=== PATIENT | male | born 1940 | race Caucasian/White ===

== ENCOUNTER → 2018-12-19 13:14 | Outpatient (CLI) | payer MEDICARE, SELFPAY ==
[2018-12-19 13:42] LABS: Basophils # 0.1 K/mm3 (0-0.2); Basophils % 1.1 % (0.1-2.0); Eosinophils # 0.3 K/mm3 (0.0-0.4); Eosinophils % 6.6 % (0.1-12.0); Hematocrit 45.6 % (42.0-52.0); Hemoglobin 15.4 g/dL (14.1-18.0); Lymphocytes # 1.7 K/mm3 (0.7-4.5); Lymphocytes % 32.8 % (10-50); Mean Corpuscular HGB Conc 33.9 g/dL (31.8-35.4); Mean Corpuscular Hemoglobin 30.3 pg (27.0-31.2); Mean Corpuscular Volume 89.5 fl (80-94); Mean Platelet Volume 7.7 fl (7.4-10.4); Monocytes # 0.4 K/mm3 (0.1-1.0); Monocytes % 8.5 % (1.7-9.3); Neutrophils # 2.6 K/mm3 (1.8-7.8); Platelet Count 267 K/mm3 (142-424); Red Cell Distribution Width 13.4 % (11.5-17.5); White Blood Count 5.1 K/mm3 (4.8-10.8)
[2018-12-19 14:42] LABS: Alanine Aminotransferase 26 U/L (12-78); Albumin Level 3.8 gm/dL (3.4-5.0); Albumin/Globulin Ratio 1.3 (1.1-1.8); Alkaline Phosphatase 72 U/L (46-116); Anion Gap 12.3 mEq/L (5-15); Aspartate Amino Transferase 15 U/L (15-37); Bilirubin,Total 1.1 mg/dL (0.2-1.0); Blood Urea Nitrogen 24 mg/dL (7-18); Calcium 8.9 mg/dL (8.5-10.1); Carbon Dioxide 28 mmol/L (21.0-32.0); Chloride 108 mmol/L (98-107); Cholesterol 209 mg/dL (140-200); Creatinine,Serum 1.41 mg/dL (0.70-1.30); Estimated Glomerular Filt Rate 49 ml/min (>60); GFR (African American) 59 ML/MIN (>60); Globulin 2.9 gm/dl (1.3-3.2); Glucose 93 mg/dL (74-106); HDL Cholesterol 42 mg/dL (27-67); LDL Cholesterol 145 mg/dL (0-130); Potassium 4.3 mmoL/L (3.5-5.1); Sodium 144 mmol/L (136-145); T4 (Thyroxine) 8.8 ug/dl (4.7-13.3); Thyroid Stimulating Hormone 2.47 uIU/ml (0.358-3.740); Total Protein,Serum 6.7 gm/dL (6.4-8.2); Triglycerides 110 mg/dL (30-200); VLDL Cholesterol 22 mg/dL (0-40)
[2018-12-20 19:09] LABS: PSA, Free 0.41 ng/mL; Prostate Specific Ag 1.6 ng/mL (0.0-4.0); Vitamin D 25 Hydroxy 50.8 ng/mL (30.0-100.0)
== END ==
PROVIDERS: Visit Provider Emergency Medicine
DX: Z00.00 Encounter for general adult medical examination without abnormal findings (principal); Z12.5 Encounter for screening for malignant neoplasm of prostate; R53.83 Other fatigue; E78.5 Hyperlipidemia, unspecified
CPT/HCPCS: 80053; 80061; 82652; 84153; 84154; 84436; 84443; 85025

== ENCOUNTER → 2018-12-22 13:23 | Outpatient (CLI) | payer MEDICARE, SELFPAY ==
[2018-12-22 14:45] LABS: Erythrocyte Sedimentation Rate 1 mm/hr (0-20)
== END ==
PROVIDERS: PCP Emergency Medicine; Visit Provider Emergency Medicine
DX: R53.83 Other fatigue (principal)
CPT/HCPCS: 85651

== ENCOUNTER → 2019-02-05 08:15 | Outpatient (CLI) | payer MEDICARE, SELFPAY ==
--- NOTE | 2019-02-05 08:28 | MR_ITS ---
MR head/brain wo/w con HISTORY: Bilateral hearing loss ITS.REASON: for temporal bones please ORDERING PHYSICIAN: Pierce Lerner MD PATIENT AGE: 78 years Comparison: None TECHNIQUE: Standard multiplanar multiecho sequences are performed without and with gadolinium enhancement. Thin section pre- and post enhanced coronal and axial images are obtained of the cerebellopontine angle/temporal bones as well. FINDINGS: No midline shift, mass effect, intracranial hemorrhage, or hydrocephalus is evident. No evidence of acute infarction. There are scattered periventricular and subcortical T2 white matter hyperintensities consistent with ischemic gliotic change from microvascular disease. The pituitary, corpus callosum, optic chiasm, and craniocervical junction have an unremarkable appearance. Thin section pre and post enhanced T1 weighted images through the CP angles were obtained. There is some mild enhancement involving mainly the extracanalicular portion of the left nerve VII and VIII complex with some minimal intracanalicular enhancement as well. The right CP angle has an unremarkable appearance. No other significant anomalies are evident. No other abnormal areas of enhancement are apparent. No sinus air-fluid level or mastoid effusion. IMPRESSION: There is mild enhancement of the LEFT nerve VII and VIII complex mostly extracanalicular but also with some minimal intracanalicular enhancement. The VII and VIII nerve complex is not significantly enlarged. 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
[2019-02-05 08:32] LABS: Blood Urea Nitrogen 19 mg/dL (7-18); Creatinine,Serum 1.47 mg/dL (0.70-1.30); Estimated Glomerular Filt Rate 46 ml/min (>60); GFR (African American) 56 ML/MIN (>60)
== END ==
PROVIDERS: Visit Provider Otolaryngology
DX: D33.3 Benign neoplasm of cranial nerves (principal); H90.5 Unspecified sensorineural hearing loss
CPT/HCPCS: 36415; 70553; 82565; 84520; A9576

== ENCOUNTER 2020-03-14 00:28 | Emergency (ER) | payer MEDICARE, SELFPAY ==
[2020-03-14 00:30] VITALS: BP 196/88; PULSE 64; RESP 16; O2SAT 95
[2020-03-14 00:38] VITALS: BP 207/84; PULSE 58; RESP 16; TEMP 36.8; O2SAT 95; BMI 23.8
[2020-03-14 01:00] VITALS: BP 201/81; PULSE 60; RESP 17; O2SAT 95
[2020-03-14 01:03] LABS: Basophils # 0.1 K/mm3 (0-0.2); Basophils % 0.8 % (0.1-2.0); Eosinophils # 0.4 K/mm3 (0.0-0.4); Eosinophils % 4.9 % (0.1-12.0); Hematocrit 47.5 % (42.0-52.0); Hemoglobin 16.9 g/dL (14.1-18.0); Lymphocytes % 41.1 % (10-50); Mean Corpuscular HGB Conc 35.5 g/dL (31.8-35.4); Mean Corpuscular Hemoglobin 31.3 pg (27.0-31.2); Mean Corpuscular Volume 88.2 fl (80-94); Mean Platelet Volume 7.6 fl (7.4-10.4); Monocytes # 0.5 K/mm3 (0.1-1.0); Monocytes % 6.3 % (1.7-9.3); Neutrophils # 3.5 K/mm3 (1.8-7.8); Neutrophils % 46.9 % (37.0-80.0); Platelet Count 228 K/mm3 (142-424); Red Blood Count 5.38 M/mm3 (4.60-6.20); Red Cell Distribution Width 13.2 % (11.5-17.5); White Blood Count 7.4 K/mm3 (4.8-10.8)
[2020-03-14 01:08] LABS: Chloride 109 mmol/L (98-107)
[2020-03-14 01:09] LABS: Sodium 142 mmol/L (136-145)
[2020-03-14 01:11] LABS: Alanine Aminotransferase 17 U/L (12-78); Alkaline Phosphatase 73 U/L (38-126); Aspartate Amino Transferase 27 U/L (17-59); Bilirubin,Total 0.9 mg/dl (0.2-1.3); Blood Urea Nitrogen 22 mg/dl (9-20); Creatinine Clearance Estimated 39 mL/min (50-200); Estimated Glomerular Filt Rate 45 ml/min (>60); GFR (African American) 55 ML/MIN (>60)
[2020-03-14 01:12] LABS: Albumin Level 4.1 g/dl (3.5-5.0); Albumin/Globulin Ratio 1.4 (1.1-1.8); Calcium 9.2 mg/dl (8.4-10.2); Carbon Dioxide 28 mmol/L (22.0-30.0); Globulin 2.9 g/dL (1.3-3.2); Glucose 104 mg/dl (74-100)
--- NOTE | 2020-03-14 01:13 | HMH.EDALLER ---
ED Disposition Clinical Impression: Renal impairment Angioedema Qualifiers: Encounter type: initial encounter Qualified Code(s): T78.3XXA - Angioneurotic edema, initial encounter Disposition: Home, Self-Care Condition on Discharge: Good Instructions: DI for Angioedema Additional Instructions: see pcp today for follow up Prescriptions: predniSONE [Prednisone 20mg Tab] 20 mg PO BID #10 tab Transmission Status: Pending to [facility] #[id number] Referrals: PCP,No [Primary Care Provider] - - Critical Care Critical Care Time: No Attestation: On 03/14/20, the high probability of a clinically significant, sudden or life threatening deterioration of the following system(s) required my full and direct attention, intervention and personal management. The time I documented below is in addition to time spent performing reported procedures but includes the following listed in this critical care notation. Medical Decision Making - Medical Records Medical records reviewed: Yes: I reviewed the patient's medical records. - Oliver Inquiry Pt receiving controlled substance: No Vital Signs: 03/14/20 00:30 03/14/20 00:38 03/14/20 01:00 Temperature 98.3 F Temperature Source Oral Pulse Rate [Right] 64 58 L 60 Respiratory Rate 16 16 17 Blood Pressure [Right Arm] 196/88 H 207/84 H 201/81 H Blood Pressure Mean [Right Arm] 124 125 121 Blood Pressure Source [Right Arm] Automatic Cuff Automatic Cuff Automatic Cuff Blood Pressure Position [Right Arm] Supine Sitting Supine 02 Sat by Pulse Oximetry 95 95 95 Oxygen Delivery Method Room Air Room Air Room Air 03/14/20 02:00 Temperature Temperature Source Pulse Rate [Right] 51 L Respiratory Rate 15 Blood Pressure [Right Arm] 181/86 H Blood Pressure Mean [Right Arm] 117 Blood Pressure Source [Right Arm] Automatic Cuff Blood Pressure Position [Right Arm] Sitting 02 Sat by Pulse Oximetry 94 L Oxygen Delivery Method Room Air - Lab Data Lab results reviewed: Yes: I reviewed the patient's lab results. Lab Results 03/14/20 00:45: WBC 7.4, RBC 5.38, Hgb 16.9, Hct 47.5, MCV 88.2, MCH 31.3 H, MCHC 35.5 H, RDW 13.2, Plt Count 228, MPV 7.6, Neut % (Auto) 46.9, Lymph % (Auto) 41.1, [place] % (Auto) 6.3, Eos % (Auto) 4.9, Baso % (Auto) 0.8, Neut # (Auto) 3.5, Lymph # (Auto) 3.0, [place] # (Auto) 0.5, Eos # (Auto) 0.4, Baso # (Auto) 0.1, ESR 2 03/14/20 00:45: Sodium 142, Potassium 4.0, Chloride 109 H, Carbon Dioxide 28, Anion Gap 9.0, BUN 22 H, Creatinine 1.50 H, Estimated Creat Clear 39, Estimated GFR 45 L, Est GFR ( Amer) 55 L, Glucose 104 H, Calcium 9.2, Total Bilirubin 0.9, AST 27, ALT 17, Alkaline Phosphatase 73, C-Reactive Protein 3.1, Total Protein 7.0, Albumin 4.1, Globulin 2.9, Albumin/Globulin Ratio 1.4 Result diagrams: 03/14/20 00:45 03/14/20 00:45 Orders (Tests/Meds): ED MEDICATIONS Generic Name Dose Route Start Last Admin Trade Name Freq PRN Reason Stop Dose Admin Sodium Chloride 1,000 mls @ 999 mls/hr 03/14/20 01:00 03/14/20 01:06 Sod Chlor 0.9% 1000ml Bag IV 03/14/20 02:00 999 mls/hr .Q1H1M JOSE ALFREDO Administration Sodium Chloride 8 ml 03/14/20 00:47 03/14/20 01:06 Sodium Chloride 0.9% 10ml Vial IV 04/13/20 00:46 8 ml NEEDED PRN Administration dilute pepcid Discontinued Medications Generic Name Dose Route Start Last Admin Trade Name Freq PRN Reason Stop Dose Admin Diphenhydramine HCl 50 mg 03/14/20 00:47 03/14/20 01:05 Benadryl 50mg/1ml Vial IV 03/14/20 00:48 50 mg ONCE ONE Administration Famotidine 20 mg 03/14/20 00:47 03/14/20 01:05 Pepcid 20mg/2ml Vial IV 03/14/20 00:48 20 mg ONCE ONE Administration Methylprednisolone Sodium Succinate 125 mg 03/14/20 00:47 03/14/20 01:05 Solu-Medrol 125mg/2ml Vial IV 03/14/20 00:48 125 mg ONCE ONE Administration - Reevaluation(s) Time: 02:41 Reevaluation #1: much improved Allergic React/Insect Bite HPI - General Chief comp
[2020-03-14 01:17] LABS: C-Reactive Protein 3.1 mg/L (0-4)
[2020-03-14 01:27] LABS: Erythrocyte Sedimentation Rate 2 mm/hr (0-20)
[2020-03-14 02:00] VITALS: BP 181/86; PULSE 51; RESP 15; O2SAT 94
--- NOTE | 2020-03-14 02:43 | PC.NURSE ---
Pt feels better, tongue swelling improved
[2020-03-14 02:44] VITALS: BP 180/82; PULSE 60; RESP 14; TEMP 36.8; O2SAT 96
== END 2020-03-14 02:48 | disposition home or self-care (01) ==
PROVIDERS: Emergency Provider Emergency Medicine
DX: T78.3XXA Angioneurotic edema, initial encounter (principal); N28.9 Disorder of kidney and ureter, unspecified; Z88.8 Allergy status to other drugs, medicaments and biological substances; Z90.49 Acquired absence of other specified parts of digestive tract
CPT/HCPCS: 80053; 85025; 85651; 86140; 96365; 96375; 99283

== ENCOUNTER → 2020-11-18 14:18 | Outpatient (CLI) | payer MEDICARE, SELFPAY ==
[2020-11-18 16:05] LABS: Basophils # 0.1 K/mm3 (0-0.2); Basophils % 0.9 % (0.1-2.0); Chloride 109 mmol/L (98-107); Eosinophils # 0.3 K/mm3 (0.0-0.4); Eosinophils % 3.9 % (0.1-12.0); Hematocrit 49.8 % (42.0-52.0); Hemoglobin 16.6 g/dL (14.1-18.0); Lymphocytes % 28.8 % (10-50); Mean Corpuscular HGB Conc 33.3 g/dL (31.8-35.4); Mean Corpuscular Hemoglobin 30.1 pg (27.0-31.2); Mean Corpuscular Volume 90.5 fl (80-94); Mean Platelet Volume 8.5 fl (7.4-10.4); Monocytes # 0.6 K/mm3 (0.1-1.0); Monocytes % 7.9 % (1.7-9.3); Neutrophils # 4.2 K/mm3 (1.8-7.8); Neutrophils % 58.6 % (37.0-80.0); Platelet Count 256 K/mm3 (142-424); Potassium 4.8 mmoL/L (3.5-5.1); Red Blood Count 5.51 M/mm3 (4.60-6.20); Red Cell Distribution Width 13.4 % (11.5-17.5); Sodium 143 mmol/L (136-145); White Blood Count 7.1 K/mm3 (4.8-10.8)
[2020-11-18 16:07] LABS: Alanine Aminotransferase 19 U/L (12-78); Alkaline Phosphatase 87 U/L (38-126); Aspartate Amino Transferase 28 U/L (17-59); Bilirubin,Total 1.1 mg/dl (0.2-1.3); Blood Urea Nitrogen 23 mg/dl (9-20); Estimated Glomerular Filt Rate 42 ml/min (>60); GFR (African American) 51 ML/MIN (>60)
[2020-11-18 16:08] LABS: Albumin Level 4.4 g/dl (3.5-5.0); Albumin/Globulin Ratio 1.7 (1.1-1.8); Anion Gap 8.8 mEq/L (5-15); Calcium 9.4 mg/dl (8.4-10.2); Carbon Dioxide 30 mmol/L (22.0-30.0); Chol/HDL Ratio 5.2 (1-3.5); Cholesterol 214 mg/dl (140-200); Globulin 2.6 g/dL (1.3-3.2); Glucose 105 mg/dl (74-100); HDL Cholesterol 41 mg/dl (40-60); Triglycerides 175 mg/dl (30-150); VLDL Cholesterol 35 mg/dL (0-40)
[2020-11-18 16:19] LABS: Direct LDL Cholesterol 144.04 mg/dL (100-129)
[2020-11-18 16:24] LABS: Free T4 (Free Thyroxine) 1.32 ng/dl (0.78-2.19)
[2020-11-18 16:25] LABS: 25-OH Vitamin D, Total 54.2 ng/mL (30-100)
== END ==
PROVIDERS: Visit Provider Emergency Medicine
DX: R32 Unspecified urinary incontinence (principal); R53.83 Other fatigue; E78.5 Hyperlipidemia, unspecified; E55.9 Vitamin D deficiency, unspecified
CPT/HCPCS: 80053; 80061; 82306; 84439; 84443; 85025

== ENCOUNTER → 2021-01-04 09:27 | Outpatient (CLI) | payer MEDICARE, SELFPAY ==
[2021-01-04 10:53] LABS: Coronavirus 19 IgG Antibody Positive (Negative); Coronavirus 19 IgM Antibody Negative (Negative)
== END ==
PROVIDERS: Visit Provider Internal Medicine Gastroenterology
DX: Z01.812 Encounter for preprocedural laboratory examination (principal); Z20.822 Contact with and (suspected) exposure to COVID-19; Z12.11 Encounter for screening for malignant neoplasm of colon; Z86.010 Personal history of colon polyps
CPT/HCPCS: 36415; 86328

== ENCOUNTER 2021-01-06 09:53 | Day surgery (SDC) | payer MEDICARE, SELFPAY ==
[2021-01-03 12:48] VITALS: BMI 23.6
[2021-01-06] VITALS (8 sets, daily range): BP systolic 110–156; BP diastolic 57–76; PULSE 51–74; RESP 18; TEMP 36.4–36.6; O2SAT 97–100
--- NOTE | 2021-01-06 10:58 | HMH.ANESCL ---
[facility] Anesthesia Checklist - Structural Data Admitted From: Home Planned Operative Procedure/s: colonoscopy Consent for Planned Operative Procedure(s) Verified: Yes - Airway Assessment C-Spine Mobility Assessed: Yes TMJ Mobility Assessed: Yes Dentition: Poor Dentition - Neurological Assessment Level of Consciousness: Awake, Alert, Appropriate - Anesthesia Plan Anesthesia Risk discussed: Yes Anesthesia Plan: Verified ASA Class: II Anesthesia Type: MAC [facility] History I have reviewed the patient's past medical history: Yes Medical History: Reports:: Carotid Stenosis, Gastroesophageal Reflux Disease(GERD) Denies:: Cancer, Diabetes Mellitus Type 1, Diabetes Mellitus Type 2, Internal Pacemaker, MRSA, Seizures *Have you ever received a pneumonia vaccine?: Yes *Have you received a flu vaccine this season?: Yes Other Medical History: Reports: Sinus Problems, Other Anesthesia experience/problems:: none Other Surgeries: Yes: No Previous Surgery, Cholecystectomy, Colonoscopy. No: Pacemaker Amputation: No Fractures: No - *Social History Last grade of school completed: 11th or 12th Smoking Status: Never smoker Alcohol Intake: never Substance Use Type: denies use *Occupational Status:: retired Housing: house Household Members: spouse *Travel in the last 8 weeks: None Family Hx:: Hypertension
--- NOTE | 2021-01-06 11:23 | P.PCN_ITS ---
[facility] Procedure Note Procedure Note:: Colonoscopy Procedure Report: Colonoscopy with cold snare polypectomy Endoscopist: Marquez Stacy II, MD Referring physician: Mateus Multani MD Date of Procedure: January 06, 2021 Equipment: Olympus 190 variable stiffness pediatric colonoscope Sedation: MAC sedation Indication: Mr. Lerner is an 80-year-old gentleman who is here for follow-up surveillance colonoscopy secondary to a personal history of colon polyps. He does report that he had a colonoscopy 4 years ago in [place] ([facility]?Paramjit Beckham MD) and had colon polyps removed. He reports no abdominal pain, weight loss, change in his bowel habits or rectal bleeding. He reports no family history of colon cancer. Procedure: Prior to the procedure, a history and physical exam was performed, and patient's medications and allergies were reviewed. The risks, benefits and alternatives of the sedation and procedure were discussed with the patient. All questions were answered and informed consent was obtained. The patient was brought to the procedure room. Patient identification and proposed procedure were verified by the physician and the nurse. The patient was placed in a left lateral decubitus position and the scope was passed under direct vision. Throughout the procedure, the patient's blood pressure, pulse, and oxygen saturations were monitored continuously. The colonoscopy was accomplished without difficulty. The patient tolerated the procedure well. Findings: On digital rectal examination there was normal rectal tone. There were no external hemorrhoids. The prostate had a small right margin nodule. The colonoscope was introduced through the anal canal to the rectum and advanced to the cecum. The ileocecal valve and appendiceal orifice were identified. The scope was advanced a short distance into the ileum which appeared grossly normal. The scope was then withdrawn into the colon. There were a total of 3 polyps (transverse x1 (4 mm) and descending x2 (4 and 5 mm)) which were all removed via cold snare polypectomy. The remaining cecum, ascending, transverse, descending, sigmoid and rectum were grossly normal. There were no mucosal abnormalities identified. Upon retroflexion within the rectum there were grade 1-2 internal hemorrhoids.The preparation was excellent throughout with [place] Preparation Score of 9. The cecal time was 12 minutes. Impression: 1. Diminutive colonic polyps x3 2. Grade 1-2 internal hemorrhoids 3. Prostate nodule (right lobe margin) Plan: I will follow up the polyp histology and I do not feel that he will require further preventive colonoscopy based upon his age. I will check PSA and inquire about whether he has had prior prostate evaluation.
--- NOTE | 2021-01-06 11:46 | XR_ITS ---
PROCEDURE: XR CHEST PORTABLE CLINICAL HISTORY: VOMITTING AFTER SCOPE PROCEDURE COMPARISON: No exams were available for comparison FINDINGS: The cardiomediastinal silhouette and pulmonary vascularity are within normal limits. There is patchy density present in the left lower lobe. The remaining lungs are clear. No acute bony abnormalities. IMPRESSION: Patchy density in the left lower lobe suspicious for pneumonia and could be due to aspiration pneumonitis with the above given history Dictated by: Ayden Deras MD 01/06/2021 12:08 Ayden Deras MD in [place] 01/06/2021 12:08
== END 2021-01-06 12:30 | disposition home or self-care (01) ==
LOC: OUTP 09:55
PROVIDERS: PCP Emergency Medicine; Visit Provider Internal Medicine Gastroenterology
PROC: 0DJD8ZZ Inspection of Lower Intestinal Tract, Via Natural or Artificial Opening Endoscopic (ICD-10-PCS; CPT 45378; principal; 2021-01-06 11:00)
DX: Z12.11 Encounter for screening for malignant neoplasm of colon (principal); Z86.010 Personal history of colon polyps; K63.5 Polyp of colon; K64.0 First degree hemorrhoids; N40.0 Benign prostatic hyperplasia without lower urinary tract symptoms; I65.29 Occlusion and stenosis of unspecified carotid artery; K21.9 Gastro-esophageal reflux disease without esophagitis; Z82.49 Family history of ischemic heart disease and other diseases of the circulatory system; Z88.8 Allergy status to other drugs, medicaments and biological substances; Z79.82 Long term (current) use of aspirin; Z79.899 Other long term (current) drug therapy
CPT/HCPCS: 45385; 71045; 84153; 88305

== ENCOUNTER → 2021-09-21 13:50 | Outpatient (CLI) | payer MEDICARE, SELFPAY ==
[2021-09-21 14:14] LABS: Basophils # 0.1 K/mm3 (0-0.2); Eosinophils # 0.3 K/mm3 (0.0-0.4); Eosinophils % 4.4 % (0.1-12.0); Hematocrit 50.5 % (42.0-52.0); Hemoglobin 16.7 g/dL (14.1-18.0); Lymphocytes # 1.7 K/mm3 (0.7-4.5); Mean Corpuscular Hemoglobin 31.2 pg (27.0-31.2); Mean Corpuscular Volume 94.4 fl (80-94); Mean Platelet Volume 8.3 fl (7.4-10.4); Monocytes # 0.4 K/mm3 (0.1-1.0); Monocytes % 7.7 % (1.7-9.3); Neutrophils # 3.3 K/mm3 (1.8-7.8); Neutrophils % 57.9 % (37.0-80.0); Platelet Count 267 K/mm3 (142-424); Red Blood Count 5.35 M/mm3 (4.60-6.20); Red Cell Distribution Width 13.3 % (11.5-17.5); White Blood Count 5.7 K/mm3 (4.8-10.8)
[2021-09-21 15:04] LABS: Alanine Aminotransferase 15 U/L (12-78); Albumin Level 4.2 g/dl (3.5-5.0); Albumin/Globulin Ratio 1.8 (1.1-1.8); Alkaline Phosphatase 77 U/L (38-126); Anion Gap 9.6 mEq/L (5-15); Aspartate Amino Transferase 30 U/L (17-59); Blood Urea Nitrogen 23 mg/dl (9-20); Calcium 9.2 mg/dl (8.4-10.2); Carbon Dioxide 30 mmol/L (22.0-30.0); Chloride 105 mmol/L (98-107); Chol/HDL Ratio 5.5 (1-3.5); Cholesterol 204 mg/dl (140-200); Estimated Glomerular Filt Rate 45 ml/min (>60); GFR (African American) 54 ML/MIN (>60); Globulin 2.4 g/dL (1.3-3.2); Glucose 80 mg/dl (74-100); HDL Cholesterol 37 mg/dl (40-60); Potassium 4.6 mmoL/L (3.5-5.1); Sodium 140 mmol/L (136-145); Total Protein,Serum 6.6 g/dl (6.3-8.2); Triglycerides 135 mg/dl (30-150); VLDL Cholesterol 27 mg/dL (0-40)
[2021-09-21 15:15] LABS: Direct LDL Cholesterol 149.82 mg/dL (100-129)
== END ==
PROVIDERS: Visit Provider Family Medicine
DX: Z00.00 Encounter for general adult medical examination without abnormal findings (principal); T78.3XXA Angioneurotic edema, initial encounter; Z79.899 Other long term (current) drug therapy
CPT/HCPCS: 80053; 80061; 85025

== ENCOUNTER → 2022-03-24 09:18 | Outpatient (CLI) | payer MEDICARE, SELFPAY | PROVIDERS: PCP Family Medicine; Visit Provider Ophthalmology | DX: Z01.812 Encounter for preprocedural laboratory examination (principal); Z20.822 Contact with and (suspected) exposure to COVID-19 | CPT/HCPCS: C9803; U0003; U0005 ==

== ENCOUNTER 2022-03-27 06:39 | Day surgery (SDC) | payer MEDICARE, SELFPAY ==
[2022-03-22 14:26] VITALS: BMI 23.5
[2022-03-27] VITALS (7 sets, daily range): BP systolic 141–179; BP diastolic 64–81; PULSE 45–55; RESP 16–18; TEMP 36.5; O2SAT 97–100
== END 2022-03-27 08:45 | disposition home or self-care (01) ==
LOC: OR 06:40
PROVIDERS: PCP Family Medicine; Visit Provider Ophthalmology
DX: H25.812 Combined forms of age-related cataract, left eye (principal)
CPT/HCPCS: 66984; V2632

== ENCOUNTER → 2022-04-11 06:26 | Outpatient (CLI) | payer MEDICARE, SELFPAY ==
[2022-04-11 18:18] LABS: Adenovirus,PCR Not Detected (NotDetected); Bordetella Pertussis Not Detected (NotDetected); Chlamydophila Pneumoniae, PCR Not Detected (NotDetected); Coronavirus 19, PCR Not Detected (NotDetected); Coronavirus 229E Not Detected (NotDetected); Coronavirus NL63 Not Detected (NotDetected); Coronavirus OC43 Not Detected (NotDetected); Coronovirus HKU1,PCR Not Detected (NotDetected); Influenza A, PCR Not Detected (NotDetected); Influenza AH1, 2009 Not Detected (NotDetected); Influenza AH1, PCR Not Detected (NotDetected); Influenza AH3,PCR Not Detected (NotDetected); Influenza B, PCR Not Detected (NotDetected); Mycoplasma Pneumoniae, PCR Not Detected (NotDetected); Parainfluenza 1, PCR Not Detected (NotDetected); Parainfluenza 2, PCR Not Detected (NotDetected); Parainfluenza 3, PCR Not Detected (NotDetected); Parainfluenza 4, PCR Not Detected (NotDetected); Respiratory Syncytial Virus Not Detected (NotDetected); Rhinovirus/Enterovirus Not Detected (NotDetected)
[2022-04-11 23:30] LABS: Human Metapneumovirus Detected (NotDetected)
== END ==
PROVIDERS: PCP Nurse Practitioner Family; Visit Provider Nurse Practitioner Family
DX: Z20.822 Contact with and (suspected) exposure to COVID-19 (principal); R05.9 Cough, unspecified; R09.89 Other specified symptoms and signs involving the circulatory and respiratory systems; R06.02 Shortness of breath; R50.9 Fever, unspecified; B97.81 Human metapneumovirus as the cause of diseases classified elsewhere
CPT/HCPCS: 87581; 87632; 87798; C9803; U0003; U0005

== ENCOUNTER → 2022-09-25 11:45 | Outpatient (CLI) | payer MEDICARE, SELFPAY ==
[2022-09-25 15:27] LABS: Alanine Aminotransferase 18 U/L (12-78); Albumin Level 4.2 g/dl (3.5-5.0); Albumin/Globulin Ratio 1.5 (1.1-1.8); Alkaline Phosphatase 85 U/L (38-126); Anion Gap 10.8 mEq/L (5-15); Aspartate Amino Transferase 29 U/L (17-59); Basophils # 0.1 K/mm3 (0-0.2); Basophils % 1.4 % (0.1-2.0); Bilirubin,Total 1.3 mg/dl (0.2-1.3); Blood Urea Nitrogen 21 mg/dl (9-20); Calcium 8.8 mg/dl (8.4-10.2); Carbon Dioxide 28 mmol/L (22.0-30.0); Chloride 108 mmol/L (98-107); Chol/HDL Ratio 5.5 (1-3.5); Cholesterol 213 mg/dl (140-200); Eosinophils # 0.2 K/mm3 (0.0-0.4); Eosinophils % 4.9 % (0.1-12.0); Estimated Glomerular Filt Rate 45 ml/min (>60); GFR (African American) 54 ML/MIN (>60); Globulin 2.8 g/dL (1.3-3.2); Glucose 93 mg/dl (74-100); HDL Cholesterol 39 mg/dl (40-60); Hematocrit 49.8 % (42.0-52.0); Hemoglobin 16.9 g/dL (14.1-18.0); Lymphocytes # 1.7 K/mm3 (0.7-4.5); Lymphocytes % 37.9 % (10-50); Mean Corpuscular HGB Conc 33.9 g/dL (31.8-35.4); Mean Corpuscular Hemoglobin 30.9 pg (27.0-31.2); Mean Corpuscular Volume 91.2 fl (80-94); Mean Platelet Volume 8.9 fl (7.4-10.4); Monocytes # 0.4 K/mm3 (0.1-1.0); Monocytes % 8.5 % (1.7-9.3); Neutrophils # 2.1 K/mm3 (1.8-7.8); Neutrophils % 47.2 % (37.0-80.0); Platelet Count 261 K/mm3 (142-424); Potassium 4.8 mmoL/L (3.5-5.1); Red Blood Count 5.46 M/mm3 (4.60-6.20); Red Cell Distribution Width 13.3 % (11.5-17.5); Sodium 142 mmol/L (136-145); Triglycerides 153 mg/dl (30-150); VLDL Cholesterol 31 mg/dL (0-40); White Blood Count 4.5 K/mm3 (4.8-10.8)
[2022-09-25 15:38] LABS: Direct LDL Cholesterol 135.29 mg/dL (100-129)
[2022-09-25 16:00] LABS: Prostate Specific Ag Screen 2.2 ng/ml (0.0-4.0)
== END ==
PROVIDERS: PCP Family Medicine; Visit Provider Family Medicine
DX: T78.3XXA Angioneurotic edema, initial encounter (principal); Z12.5 Encounter for screening for malignant neoplasm of prostate; E78.5 Hyperlipidemia, unspecified
CPT/HCPCS: 80053; 80061; 85025; G0103

== ENCOUNTER → 2022-10-03 11:01 | Outpatient (CLI) | payer MEDICARE, SELFPAY ==
--- NOTE | 2022-10-03 11:01 | MR_ITS ---
FINAL REPORT CLINICAL HISTORY: acoustic neuroma prior mri 02/05/19 COMPARISON: 02/05/2019 FINDINGS: Multiplanar MR imaging of the brain was performed without contrast. There is mild age-appropriate atrophy. There are scattered foci of increased T2 signal in the cerebral white matter that have a nonspecific appearance but likely represent mild chronic ischemic/gliotic changes. There is no evidence of intracranial hemorrhage. There is a small focus of soft tissue in the left cerebellopontine angle measuring 5 mm in the region of the focus of contrast enhancement seen on the prior exam. This is visually stable but of uncertain etiology. This does not have the classic appearance of a vestibular schwannoma, could represent small meningioma or atypical schwannoma. No new mass is identified. No abnormal ventricular dilatation is identified. No abnormal extra-axial fluid collection is seen. No abnormality is seen on the diffusion weighted images. Normal major vessel vascular flow voids are seen. IMPRESSION: Stable, small focus of soft tissue in the left cerebellar pontine angle as detailed above. Age-appropriate atrophy and mild chronic ischemic/gliotic changes. Reviewed, Interpreted and Dictated by Warren Yañez III, MD Transcribed by Hannah Lu Authenticated and [facility]
== END ==
PROVIDERS: PCP Family Medicine; Visit Provider Family Medicine
DX: D33.3 Benign neoplasm of cranial nerves (principal)
CPT/HCPCS: 70551

== ENCOUNTER 2023-10-23 22:21 | Outpatient (CLI) | payer MEDICARE, SELFPAY ==
[2023-10-23 19:29] LABS: 25-OH Vitamin D, Total 75.2 ng/mL (30-100)
== END 2023-10-23 23:59 ==
LOC: LAB.DROPOF 22:21
PROVIDERS: PCP Internal Medicine; Visit Provider Internal Medicine
DX: E55.9 Vitamin D deficiency, unspecified (principal)
CPT/HCPCS: 82306

== ENCOUNTER 2024-02-07 10:24 | Outpatient (CLI) | payer MEDICARE, SELFPAY ==
[2024-02-07 18:14] LABS: Basophils # 0.1 K/mm3 (0-0.2); Basophils % 1.5 % (0.1-2.0); Eosinophils # 0.5 K/mm3 (0.0-0.4); Eosinophils % 7.2 % (0.1-12.0); Hematocrit 49.4 % (42.0-52.0); Hemoglobin 16.3 g/dL (14.1-18.0); Lymphocytes # 2.1 K/mm3 (0.7-4.5); Lymphocytes % 32.5 % (10-50); Mean Corpuscular Hemoglobin 30.7 pg (27.0-31.2); Mean Corpuscular Volume 93.2 fl (80-94); Mean Platelet Volume 9.8 fl (7.4-10.4); Monocytes # 0.5 K/mm3 (0.1-1.0); Monocytes % 8.6 % (1.7-9.3); Neutrophils # 3.2 K/mm3 (1.8-7.8); Neutrophils % 50.4 % (37.0-80.0); Platelet Count 245 K/mm3 (142-424); White Blood Count 6.3 K/mm3 (4.8-10.8)
[2024-02-07 19:13] LABS: Alanine Aminotransferase 19 U/L (12-78); Albumin Level 4.1 g/dl (3.5-5.0); Albumin/Globulin Ratio 1.5 (1.1-1.8); Alkaline Phosphatase 83 U/L (38-126); Anion Gap 14.1 mEq/L (5-15); Aspartate Amino Transferase 29 U/L (17-59); Bilirubin,Total 1.1 mg/dl (0.2-1.3); Blood Urea Nitrogen 27 mg/dl (9-20); Calcium 9.4 mg/dl (8.4-10.2); Carbon Dioxide 26 mmol/L (22.0-30.0); Chloride 105 mmol/L (98-107); Chol/HDL Ratio 5.7 (1-3.5); Cholesterol 223 mg/dl (140-200); Estimated Glomerular Filt Rate 41 ml/min (>60); GFR (African American) 50 ML/MIN (>60); Globulin 2.7 g/dL (1.3-3.2); Glucose 94 mg/dl (74-100); HDL Cholesterol 39 mg/dl (40-60); Potassium 4.1 mmoL/L (3.5-5.1); Sodium 141 mmol/L (136-145); Total Protein,Serum 6.8 g/dl (6.3-8.2); Triglycerides 218 mg/dl (30-150); VLDL Cholesterol 44 mg/dL (0-40)
[2024-02-07 19:31] LABS: 25-OH Vitamin D, Total 62.6 ng/mL (30-100)
== END 2024-02-07 23:59 | disposition home or self-care (01) ==
LOC: LAB.DROPOF 02-10 10:24
PROVIDERS: Visit Provider Family Medicine
DX: N18.31 Chronic kidney disease, stage 3a (principal); E55.9 Vitamin D deficiency, unspecified; R53.83 Other fatigue; Z68.22 Body mass index [BMI] 22.0-22.9, adult; E78.00 Pure hypercholesterolemia, unspecified
CPT/HCPCS: 80050; 80053; 80061; 82306; 84443; 85025

== ENCOUNTER 2024-10-12 10:31 | Outpatient (CLI) | payer MEDICARE, SELFPAY ==
[2024-10-12 19:42] LABS: Alanine Aminotransferase 20 U/L (12-78); Albumin Level 4.2 g/dl (3.5-5.0); Albumin/Globulin Ratio 1.9 (1.1-1.8); Alkaline Phosphatase 76 U/L (38-126); Anion Gap 12.8 mEq/L (5-15); Aspartate Amino Transferase 28 U/L (17-59); Bilirubin,Total 1.1 mg/dl (0.2-1.3); Blood Urea Nitrogen 21 mg/dl (9-20); Calcium 9.1 mg/dl (8.4-10.2); Carbon Dioxide 31 mmol/L (22.0-30.0); Chloride 104 mmol/L (98-107); Chol/HDL Ratio 6.2 (1-3.5); Cholesterol 199 mg/dl (140-200); Estimated Glomerular Filt Rate 45 ml/min (>60); GFR (African American) 54 ML/MIN (>60); Globulin 2.2 g/dL (1.3-3.2); Glucose 97 mg/dl (74-100); HDL Cholesterol 32 mg/dl (40-60); Potassium 4.8 mmoL/L (3.5-5.1); Sodium 143 mmol/L (136-145); Total Protein,Serum 6.4 g/dl (6.3-8.2); Triglycerides 133 mg/dl (30-150); VLDL Cholesterol 27 mg/dL (0-40)
[2024-10-12 19:53] LABS: Direct LDL Cholesterol 124.39 mg/dL (100-129)
[2024-10-12 20:00] LABS: 25-OH Vitamin D, Total 65.2 ng/mL (30-100)
[2024-10-12 20:14] LABS: Prostate Specific Ag Screen 1.9 ng/ml (0.0-4.0)
== END 2024-10-12 23:59 | disposition home or self-care (01) ==
LOC: LAB.DROPOF 10-13 09:06
PROVIDERS: PCP Internal Medicine; Visit Provider Internal Medicine
DX: E55.9 Vitamin D deficiency, unspecified (principal); Z00.00 Encounter for general adult medical examination without abnormal findings; Z12.5 Encounter for screening for malignant neoplasm of prostate; E78.00 Pure hypercholesterolemia, unspecified; N18.31 Chronic kidney disease, stage 3a; R01.1 Cardiac murmur, unspecified
CPT/HCPCS: 80053; 80061; 82306; G0103

== ENCOUNTER 2024-10-19 13:31 | Outpatient (CLI) | payer MEDICARE, SELFPAY ==
--- NOTE | 2024-10-19 13:36 | CA_ITS ---
APPROVED REPORT EXAM: Comprehensive 2D, Doppler, and color-flow Echocardiogram Technical Support Engineer: Caroline Villegas RDCS Ht: 5 ft 7 in Wt: 150lbs BSA: 1.79 BP: 136/84 mmHg Indications: MURMUR,HLP 2D Dimensions LA Volume 66.00 mL LA Volume Index 36.87 mL/m2 (M/F) 16-34 M-Mode Dimensions RVDd 2.51 cm (0.9-2.6) LA Diam 3.85 cm (1.9-4.0) LVDd 5.82 cm (3.5-5.7) LVDs 3.42 cm (3.5-5.7) IVSd 0.61 cm (0.6-1.1) PWd 0.80 cm (0.6-1.1) EF (Teich) 71.40% FS 41.20% EDV (Teich) 167.90 mL TAPSE 2.56 (<1.7) ESV (Teich) 48.10 mL LV Diastology E Decel Time 300 (160-240 msec) E/A Ratio 1.4 Aortic Valve ANKIT Index 0.85 cm2/m2 AoV Peak Hoang. 304.0 (50-130 cm/s) AI PHT 546.00 ms AO Peak GR. 38.70 mmHg AO Mean GR. 19.00 (<5 mmHg) AO VTI 52.2 (18-25 cm) ANKIT (VTI) 1.55 (2.5-4.5 cm2) Mitral Valve MV E Max Hoang. 88.0 (40-130 cm/s) MV A Velocity 63.0 (40-130 cm/s) E/A Ratio 1.41 MV PHT 88.0 ms Tricuspid Valve TR P. Velocity 253.00 cm/s RAP Estimate 10.00 mmHg RVSP 35.50 mmHg Left Ventricle The left ventricle is normal size. The left ventricular systolic function is normal. The left ventricular ejection fraction is within the normal range. There is normal left ventricular wall thickness. There is normal LV segmental wall motion. Diastolic function is indeterminate. LVEF is 60%. Right Ventricle The right ventricle is normal size. The right ventricular systolic function is normal. Atria Left atrium is severely dilated. Right atrium is moderately dilated. There is no Doppler evidence of interatrial shunt. Aortic Valve The aortic valve is mildly thickened. There is no aortic valvular stenosis. Mild aortic regurgitation. Mitral Valve There is possible bileaflet MV prolapse (posterior > anterior) present. No evidence of mitral valve stenosis. Severe mitral regurgitation is present. The MR jet is eccentric and anteriorly directed. Tricuspid Valve The tricuspid valve leaflets are thin and pliable. Mild tricuspid regurgitation. RVSP is 20-25 mmHg. Pulmonic Valve The pulmonary valve is normal in structure. Trace pulmonic regurgitation. Great Vessels The aortic root is normal in size. The ascending aorta is not well-visualized. IVC is normal in size and collapses >50% with inspiration. Pericardium There is no pericardial effusion. Other Information Study Quality: Fair Conclusion Normal LV systolic function (LVEF 60%) in the setting of severe MR. Biatrial dilation. Possible bileaflet MV prolapse (posterior > anterior). Severe eccentric MR jet (anteriorly directed). Mild TR, mild AI. In the setting of severe eccentric MR with possible bileaflet prolapse, further evaluation for mechanism of MR and true MR severity is suggested with PATSY, if deemed clinically appropriate and indicated. Electronically signed by : Janeen Moreno MD 10/26/2024 12:48:23
== END 2024-10-19 23:59 | disposition home or self-care (01) ==
LOC: RT 13:32
PROVIDERS: PCP Internal Medicine; Visit Provider Internal Medicine
DX: I51.7 Cardiomegaly (principal); R01.1 Cardiac murmur, unspecified
CPT/HCPCS: 93306

== ENCOUNTER 2024-11-24 09:27 | Day surgery (SDC) | payer MEDICARE, SELFPAY ==
[2024-11-20 12:45] VITALS: BMI 23.8
--- NOTE | 2024-11-24 09:29 | CA_ITS ---
APPROVED REPORT EXAM: Comprehensive 2D, Doppler, and color-flow Echocardiogram [employer] Coach: Vy Abdalla RVT Ht: 5 ft 7 in Wt: 152lbs BSA: 1.80 BP: 157/67 mmHg Indications: SEVERE MR ON TTE Procedure After obtaining informed consent, patient underwent transesophageal echo in the [facility]. Type of Sedation : MAC Sedation was administered by Jermaine Montana C.R.N.AMer Sedation start time: 11:25 Case end Time: 11:45 Transesophageal probe was inserted and advanced into esophagus without difficulty by Dr. Camilo Moreno. The PATSY was performed without complications. Throughout the procedure, the blood pressure, pulse oximetry, cardiac rhythm, and rate were monitored. The patient tolerated the procedure without adverse effects. Recovery from conscious sedation was uneventful and vital signs were stable. Left Ventricle The left ventricle is normal size. The left ventricular systolic function is normal. The left ventricular ejection fraction is within the normal range. There is increased LV wall thickness. LVEF is 60%. There is normal LV segmental wall motion. Right Ventricle The right ventricle is normal size. The right ventricular systolic function is normal. Atria The left atrium is dilated. No thrombus is visualized in the left atrium or appendage. The right atrium is dilated. Lipomatous hypertrophy of the interatrial septum is noted. Interatrial septum is intact without evidence of ASD or PFO. Aortic Valve Aortic valve is trileaflet. The aortic valve is mildly thickened. There is no aortic valvular stenosis. Mild aortic regurgitation. Mitral Valve Bileaflet prolapse is present. A flail P2 segment is also noted. No evidence of mitral valve stenosis. MVA by PHT method is 3.0 cm2. Severe mitral regurgitation is present. The MR jet is eccentric and anteriorly directed. The mechanism of MR is likely degenerative in the setting of bileaflet prolapse and flail P2 segment (Alysia class II). EROA by PISA method is likely underestimated in the setting of eccentric MR. EROA is 0.37 cm2. MRvol=49 mL. VCW=0.5 cm. Tricuspid Valve Tricuspid valve is grossly normal in structure and function. Mild tricuspid regurgitation. RVSP is 20 mmHg + RA pressure. Pulmonic Valve The pulmonary valve is normal in structure. Trace pulmonic regurgitation. Great Vessels The aortic root is normal in size. The ascending aorta is normal in size. Pericardium There is no pericardial effusion. Other Information Study Quality: Fair Conclusion Normal biventricular systolic function (LVEF 60%) in the setting of severe MR. Biatrial dilation. Bileaflet MV prolapse is present. A flail P2 segment is also noted. Severe MR. The MR jet is eccentric and anteriorly directed. The mechanism of MR is likely degenerative in the setting of bileaflet prolapse and flail P2 segment (Alysia class II). EROA by PISA method is likely underestimated in the setting of eccentric MR. EROA is 0.37 cm2. MRvol=49 mL. VCW=0.5 cm. MVA by PHT method is 3.0 cm2. Mild AI, mild TR. In the setting of severe degenerative MR, early referral to interventional cardiology versus surgery for [id number] vs. surgical MVR is suggested. Electronically signed by : Janeen Moreno MD 11/24/2024 12:10:38
[2024-11-24 10:32] VITALS: BP 181/81; PULSE 55; RESP 16; TEMP 36.1; O2SAT 98
[2024-11-24] MEDS: LACTATED RINGERS 1000ML 1,000 ML 50 ML IV (10:32)
--- NOTE | 2024-11-24 10:43 | ECG_ITS ---
APPROVED REPORT Exam: Resting ECG HR:55 bpm ECG Measurements Heart Rate 55 AXES PA 186 P 50 QRSd 75 QRS 7 QT 406 T 22 QTc 396 Conclusion SINUS BRADYCARDIA BORDERLINE ECG UNCONFIRMED REPORT Electronically signed by : Gabriel Mercedes MD 11/24/2024 21:05:53
[2024-11-24 10:45] LABS: Basophils # 0.1 K/mm3 (0-0.2); Eosinophils # 0.3 K/mm3 (0.0-0.4); Eosinophils % 5.8 % (0.1-12.0); Hematocrit 48.2 % (42.0-52.0); Hemoglobin 16.5 g/dL (14.1-18.0); Lymphocytes # 1.7 K/mm3 (0.7-4.5); Lymphocytes % 28.8 % (10-50); Mean Corpuscular HGB Conc 34.2 g/dL (31.8-35.4); Mean Corpuscular Hemoglobin 30.6 pg (27.0-31.2); Mean Corpuscular Volume 89.3 fl (80-94); Mean Platelet Volume 9.2 fl (7.4-10.4); Monocytes # 0.6 K/mm3 (0.1-1.0); Monocytes % 10.6 % (1.7-9.3); Neutrophils # 3.1 K/mm3 (1.8-7.8); Neutrophils % 53.6 % (37.0-80.0); Platelet Count 196 K/mm3 (142-424); Red Cell Distribution Width 12.7 % (11.5-17.5); White Blood Count 5.9 K/mm3 (4.8-10.8)
[2024-11-24 10:52] LABS: Chloride 109 mmol/L (98-107); Potassium 4.7 mmoL/L (3.5-5.1); Sodium 141 mmol/L (136-145)
[2024-11-24 10:55] LABS: Anion Gap 5.7 mEq/L (5-15); Blood Urea Nitrogen 23 mg/dl (9-20); Calcium 9.5 mg/dl (8.4-10.2); Carbon Dioxide 31 mmol/L (22.0-30.0); Creatinine Clearance Estimated 36 mL/min (50-200); Estimated Glomerular Filt Rate 45 ml/min (>60); GFR (African American) 54 ML/MIN (>60); Glucose 98 mg/dl (74-100)
[2024-11-24 10:56] LABS: INR 0.97 (0.9-1.1); Prothrombin Time 10.9 seconds (10.1-12.5)
--- NOTE | 2024-11-24 10:57 | EXP.ANES.CKL ---
[facility] Disclaimer: The information contained in this section may have been updated after the patient was seen, as this information can be updated by other users. Medical History Holosystolic murmur Abnormal echocardiogram Mitral valve regurgitation Surgical History Hx of cholecystectomy Family History (Updated 11/20/24 @ 12:42 by Shirley Morgan RN) Mother Hypertension Father Hypertension Other Heart disease Social History (Updated 11/20/24 @ 12:44 by Shirley Morgan RN) Smoking Status: Never smoker second hand exposure: No alcohol intake: never substance use type: denies use current occupational status: retired Travel in the last 8 weeks: None household members: spouse housing: house current occupational exposures/hazards: No caffeine: Yes Have you lived/traveled outside [place] in past 30 days?: No Contact w/someone who lives/traveled outside US past 30 days?: No Exposure to someone with infectious disease in past 14 days?: No Do you have a fever (greater than 100.4 F or 38 C)?: No Have you tested positive for COVID-19: No Exposed to someone with COVID-19 in past 14 days?: No Do you have a sore throat?: No Do you have a cough?: No Do you have any weakness?: No Are you experiencing any nausea/vomitting?: No Do you have any diarrhea?: No Are you experiencing any unusual bleeding?: No Do you have any muscle aches/pain?: No Do you have any abdominal pain?: No Are you experiencing loss of taste or smell?: No [facility] Anesthesia Checklist Patient Identification Patient Identification: Arm Band Structural Data Admitted From: Home Planned Operative Procedure/s: PATSY Consent for Planned Operative Procedure(s) Verified: Yes Verified Documents: Surgical Consent and History and Physical NPO Status Verified Time NPO: 00:00 Additional verifications Anesthesia Reactions: No Airway Assessment Mallampati Score:: Class II C-Spine Mobility Assessed: Yes TMJ Mobility Assessed: Yes Dentition: Good Dentition (upper dentures removed) Neurological Assessment Level of Consciousness: Awake, Alert and Appropriate Anesthesia Plan Anesthesia Risk discussed: Yes Anesthesia Plan: Verified ASA Class: III Anesthesia Type: MAC
[2024-11-24 11:37] VITALS: BP 116/54; PULSE 47; RESP 20; TEMP 36.3; O2SAT 97
[2024-11-24 11:47] VITALS: BP 122/69; PULSE 51; RESP 16; O2SAT 97
[2024-11-24 11:48] VITALS: O2SAT 98
[2024-11-24 11:57] VITALS: BP 135/72; PULSE 49; RESP 16; O2SAT 96
== END 2024-11-24 12:03 | disposition home or self-care (01) ==
PROVIDERS: PCP Internal Medicine; Visit Provider Internal Medicine
DX: I34.0 Nonrheumatic mitral (valve) insufficiency (principal); Z88.8 Allergy status to other drugs, medicaments and biological substances; Z79.899 Other long term (current) drug therapy; R93.1 Abnormal findings on diagnostic imaging of heart and coronary circulation; N18.31 Chronic kidney disease, stage 3a; E78.00 Pure hypercholesterolemia, unspecified
CPT/HCPCS: 80048; 85025; 85610; 93005; 93270; 93312; 93319; J7120

== ENCOUNTER 2025-03-30 09:50 | Outpatient (RCR) | payer MEDICARE, SELFPAY | END 2025-04-08 08:00 | disposition home or self-care (01) | LOC: CR 09:50 | PROVIDERS: Visit Provider Internal Medicine Cardiovascular Disease | DX: R01.1 Cardiac murmur, unspecified (principal); R93.1 Abnormal findings on diagnostic imaging of heart and coronary circulation | CPT/HCPCS: 93798 ==